=== PATIENT | male | born 1965 | race Asian ===

== ENCOUNTER 2016-12-01 15:16 | Inpatient (IN) | payer BC ==
[~2016-12-01] VITALS: Ht 172.7 cm; Wt 82.6 kg
[~2016-12-01 15:16] MED LIST: ASPI81TA27 PO; GLIP-115 PO; LIS5T PO; LOVA40TA72 PO; METF-314 PO; MIRT30TA PO
[2016-12-01 16:08] VITALS: BP 145/78
[2016-12-01 16:10] VITALS: BP 145/78
[2016-12-01] MEDS ORDERED: NITROGLYCERIN 0.4 MG SL TAB SL PRN (17:15)
[2016-12-01] MEDS ORDERED: ASPirin 81 mg TAB PO ONE (17:15)
[2016-12-01] MEDS ORDERED: DEXTROSE (50%) 50ML SYRG IV PRN (17:15)
[2016-12-01] MEDS ORDERED: MORPHINE SULF INJ 2 MG/ML SYRINGE 1ML IV PRN (17:15)
[2016-12-01] MEDS ORDERED: ISOSORBIDE MONONITRATE 60 MG TAB PO ONE (17:15)
[2016-12-01 17:51] LABS: Basophils # (auto) 0 uL; Basophils % (auto) 0.5 % (0.0-2.0); Eosinophils # (auto) 0.3 uL; Hematocrit 34.5 % (41.0-53.0); Hemoglobin 11.2 g/dL (13.5-17.5); Lymphocytes # (auto) 1.4 uL; Lymphocytes % (auto) 16.2 % (10.0-50.0); Mean Corpuscular Hemoglobin 28.2 pg (28.0-32.0); Mean Corpuscular Hgb Conc. 32.5 g/dL (32.0-36.0); Mean Corpuscular Volume 86.9 fL (80.0-100.0); Mean Platelet Volume 6.7 fL (7.4-10.4); Monocytes # (auto) 0.8 uL; Neutrophils # (auto) 6.3 uL; Neutrophils % (auto) 71.3 % (37.0-80.0); Platelet Count (auto) 303 10^3/uL (140-450); Red Cell Distribution Width 14.5 % (11.6-16.0); White Blood Cell 8.9 10^3/uL (4.4-10.8)
[2016-12-01] MEDS ORDERED: cefTRIAXone 1GM/50ML D5W 50 ML IV ONE (18:00)
[2016-12-01 18:08] LABS: Albumin 2.1 g/dL (3.4-5.0); BUN/Creatinine Ratio 19.4; Calcium 7.8 mg/dL (8.5-10.1); Magnesium 2.1 mg/dL (1.6-2.6); Potassium 4.6 mmol/L (3.5-5.1)
[2016-12-01 18:11] LABS: Bilirubin, Total 0.2 mg/dL (0.2-1.0); Total Protein 5.8 g/dL (6.4-8.2)
[2016-12-01 18:23] LABS: B-Type Natriuretic Peptide 2690.18 pg/mL (0-100); Temperature: 21.9 C (20.0-25.0)
[2016-12-01] MEDS ORDERED: AZITHROMYCIN 500MG/D5W 250ML 250 ML IV ONE (18:30)
[2016-12-01] MEDS: hydrALAZINE HCL 25 MG TAB PO SCH (21:41)
[2016-12-01] MEDS: CARVEDILOL 3.125 MG TAB PO SCH (21:42)
[2016-12-01] MEDS: ATORVASTATIN 20 MG TAB PO SCH (21:43)
[2016-12-01] MEDS: ACCU-CHEK COMFORT CURVE STRIP VI SCH (21:43)
[2016-12-01 22:00] VITALS: BP 116/71
[2016-12-01] MEDS: InsuLIN REG 1unit/0.01ml Soln (100units/ml) SC SCH (22:13)
[2016-12-02] VITALS (7 sets, daily range): BP systolic 97–145; BP diastolic 62–89
[2016-12-02] MEDS ORDERED: SITA50TA PO (01:24)
[2016-12-02] MEDS ORDERED: SPIR25TA89 PO (01:24)
[2016-12-02] MEDS ORDERED: FURO20TA3 PO (01:24)
[2016-12-02] MEDS ORDERED: HYDR-2652 PO (01:24)
[2016-12-02] MEDS ORDERED: MIRT15TA3 PO (01:24)
[2016-12-02] MEDS ORDERED: ATOR40TA52 PO (01:24)
[2016-12-02] MEDS: hydrALAZINE HCL 25 MG TAB PO SCH ×3 (06:23→22:08)
[2016-12-02 06:29] LABS: Cholesterol 168 mg/dL (<200); HDL Cholesterol 50 mg/dL (40-59); LDL Cholesterol 102 mg/dL (<100); Triglycerides 131 mg/dL (<150)
[2016-12-02] MEDS: InsuLIN REG 1unit/0.01ml Soln (100units/ml) SC SCH ×4 (07:00→22:13)
[2016-12-02] MEDS: ACCU-CHEK COMFORT CURVE STRIP VI SCH ×4 (07:47→22:12)
[2016-12-02] MEDS: ENOXAPARIN SOD 30 MG/0.3 ML SYRINGE SC SCH (09:45)
[2016-12-02] MEDS: cefTRIAXone 1GM/50ML D5W 50 ML IV SCH (09:45)
[2016-12-02] MEDS: ASPirin 81 mg TAB PO SCH (09:46)
[2016-12-02] MEDS: ISOSORBIDE MONONITRATE 60 MG TAB PO SCH (09:46)
[2016-12-02] MEDS: FUROSEMIDE 40 MG/4 ML VIAL IV SCH (09:46)
[2016-12-02] MEDS: CARVEDILOL 3.125 MG TAB PO SCH ×2 (09:47→22:10)
[2016-12-02] MEDS: AZITHROMYCIN 500MG/D5W 250ML 250 ML IV SCH (09:47)
[2016-12-02] MEDS ORDERED: ENOXAPARIN SOD 40 MG/0.4 ML SYRINGE SC SCH (10:00)
[2016-12-02] MEDS ORDERED: METOLAZONE 5 MG TAB PO ONE (18:00)
[2016-12-02] MEDS: ATORVASTATIN 20 MG TAB PO SCH (22:09)
[2016-12-03 00:26] LABS: Urine Bilirubin Negative (Negative); Urine Blood TRACE /uL (Negative); Urine Color Yellow (Yellow); Urine Granular Cast FEW /lpf (0); Urine Hyaline Cast FEW /lpf (0 - 2); Urine Ketone Negative (Negative); Urine Mucus FEW (None Seen); Urine Nitrite Negative (Negative); Urine RBC 3 /hpf (0 - 3); Urine Squamous Epithelial Cell FEW /hpf (<5); Urine Urobilinogen Normal (Negative); Urine pH 6.5 (5.0-8.0)
[2016-12-03 00:32] LABS: Urine Glucose 3+ mg/dL (Normal)
[2016-12-03 05:00] VITALS: BP 116/77
[2016-12-03 05:40] LABS: Basophils # (auto) 0.1 uL; Basophils % (auto) 0.7 % (0.0-2.0); Eosinophils # (auto) 0.4 uL; Eosinophils % (auto) 4.7 % (0.0-7.0); Hematocrit 31.6 % (41.0-53.0); Hemoglobin 10.3 g/dL (13.5-17.5); Lymphocytes # (auto) 2.1 uL; Mean Corpuscular Hemoglobin 28.4 pg (28.0-32.0); Mean Corpuscular Hgb Conc. 32.5 g/dL (32.0-36.0); Mean Corpuscular Volume 87.4 fL (80.0-100.0); Mean Platelet Volume 7.2 fL (7.4-10.4); Monocytes # (auto) 0.8 uL; Neutrophils % (auto) 59.6 % (37.0-80.0); Platelet Count (auto) 268 10^3/uL (140-450); Red Cell Distribution Width 14.8 % (11.6-16.0); White Blood Cell 8.5 10^3/uL (4.4-10.8)
[2016-12-03 06:01] LABS: BUN/Creatinine Ratio 20.1; Calcium 7.7 mg/dL (8.5-10.1); Phosphorus 5.9 mg/dL (2.6-4.90); Uric Acid 8.7 mg/dL (3.5-7.2)
[2016-12-03] MEDS: hydrALAZINE HCL 25 MG TAB PO SCH ×2 (06:28→13:48)
[2016-12-03] MEDS: ACCU-CHEK COMFORT CURVE STRIP VI SCH ×3 (06:33→17:00)
[2016-12-03] MEDS: InsuLIN REG 1unit/0.01ml Soln (100units/ml) SC SCH ×3 (06:34→17:00)
[2016-12-03] MEDS: cefTRIAXone 1GM/50ML D5W 50 ML IV SCH (08:32)
[2016-12-03 09:00] VITALS: BP 132/90
[2016-12-03] MEDS: FUROSEMIDE 40 MG/4 ML VIAL IV SCH (09:16)
[2016-12-03] MEDS: AZITHROMYCIN 500MG/D5W 250ML 250 ML IV SCH (09:16)
[2016-12-03] MEDS: ASPirin 81 mg TAB PO SCH (09:17)
[2016-12-03] MEDS: ISOSORBIDE MONONITRATE 60 MG TAB PO SCH (09:17)
[2016-12-03] MEDS: ENOXAPARIN SOD 30 MG/0.3 ML SYRINGE SC SCH (09:17)
[2016-12-03] MEDS: CARVEDILOL 3.125 MG TAB PO SCH (09:17)
[2016-12-03] MEDS ORDERED: METOLAZONE 5 MG TAB PO SCH (10:00)
[2016-12-03 12:38] VITALS: BP 123/76
[2016-12-03 13:00] VITALS: BP 133/82
[2016-12-03] MEDS ORDERED: HYDROcodone-ACET 5/325MG TAB PO PRN (16:45)
== END 2016-12-03 16:59 | disposition left against medical advice (07) | DRG 280 ==
LOC: TELE-WESTW 15:16
PROVIDERS: ADMIT Internal Medicine; ATTEND Internal Medicine
DX: I21.4 Non-ST elevation (NSTEMI) myocardial infarction (principal); I50.43 Acute on chronic combined systolic (congestive) and diastolic (congestive) heart failure; I13.0 Hypertensive heart and chronic kidney disease with heart failure and stage 1 through stage 4 chronic kidney disease, or unspecified chronic kidney disease; N17.9 Acute kidney failure, unspecified; N18.4 Chronic kidney disease, stage 4 (severe); I42.0 Dilated cardiomyopathy; E11.22 Type 2 diabetes mellitus with diabetic chronic kidney disease; E78.5 Hyperlipidemia, unspecified; I25.10 Atherosclerotic heart disease of native coronary artery without angina pectoris; D64.9 Anemia, unspecified; E11.21 Type 2 diabetes mellitus with diabetic nephropathy; Z95.810 Presence of automatic (implantable) cardiac defibrillator; Z86.73 Personal history of transient ischemic attack (TIA), and cerebral infarction without residual deficits; Z82.49 Family history of ischemic heart disease and other diseases of the circulatory system; Z83.3 Family history of diabetes mellitus; F15.90 Other stimulant use, unspecified, uncomplicated; Z53.21 Procedure and treatment not carried out due to patient leaving prior to being seen by health care provider
CPT/HCPCS: 36415; 71010; 76775; 80048; 80053; 80061; 81001; 82570; 82962; 83036; 83735; 83880; 84100; 84156; 84300; 84443; 84484; 84550; 85025; 85049; 87040; 87081; 97001; J0696; J1815